=== PATIENT | male | born 2000 | race Caucasian/White ===

== ENCOUNTER 2025-07-04 06:22 | Inpatient (IN) ==
--- NOTE | 2025-06-28 13:41 | Anesthesiology Consultation ---
Date of Service June 28, 2025 Assessment & Plan (1) Encounter for pre-operative examination: - check CBC with diff, BMP and type and screen STAT am DOS. Fluid orders to assigned anesthesiologist review of BMP DOS. - Per cargo tank mechanic on 06/28/25: No known infectious disease contacts, current infectious disease symptoms in past 10 days or COVID positive test result in the past 30 days. Chart Review Chart Review: Acceptable Risk for Surgery and Patient NOT seen in Pre Admission Testing History Surgery Operation Date: 07/04/25 11:45 Proposed Procedures p L5-S1 Decompression and Fusion - Tarun Carr DO Height/Weight Height: 5 ft 10 in Weight: 106.594 kg Allergies Allergy/AdvReac Type Severity Reaction Status Date / Time No Known Allergies Allergy Verified 06/28/25 13:19 Medications Home Medications Medication Instructions Recorded Confirmed Last Taken No Known Home Medications 06/28/25 06/28/25 Unknown Past Medical History Medical History (Updated 06/28/25 @ 13:38 by Manjula Mcpherson PA-C) History of COVID-19 (2020) resolved Hx of cardiac murmur ~15 yrs ago, no issues since Low back pain Numbness left leg Past Family History Family History Other No family history of adverse response to anesthesia Past Surgical History Surgical History No history of previous surgery Social History Smoking Status: Never smoker Do You Dip or Chew Tobacco: No Hx Alcohol Use: Yes alcohol intake frequency: a few times a week Hx Substance Use: No substance use type: does not use
[2025-07-04] MEDS: GABAPENTIN 900 MG DOSE PO SCH (06:47)
[2025-07-04] MEDS: CeleBREX 200 MG CAP PO SCH (06:47)
[2025-07-04] MEDS: ACETAMINOPHEN 500 MG TAB PO SCH (06:47)
[2025-07-04] MEDS: LR 60ML/HR IV SCH (06:48)
[2025-07-04 06:50] LABS: Hematocrit (blood only) 48.1 % (42.0-52.0); Hemoglobin 15.8 g/dl (14.0-18.0); Immature Granulocytes # (auto) 0.09 K/uL (0.01-0.20); Immature Granulocytes % (auto) 0.8 %; Mean Corpuscular Hemoglobin 29.6 pg (25.0-34.0); Mean Corpuscular Volume 90.2 fL (80.0-100.0); Platelet Count 324 K/uL (130-400); RDW Standard Deviation 42.3 fL (36.4-46.3); Red Blood Count 5.33 M/uL (4.70-6.10); White Blood Count 11.42 K/ul (4.8-10.8)
[2025-07-04] MEDS ORDERED: MIDAZOLAM HCL 1 MG/ML 2ML VIAL ONE (07:02)
[2025-07-04] MEDS ORDERED: ROCURONIUM BROMIDE 10 MG/ML 5 ML VIAL IV ONE ×3 (07:02→08:33)
[2025-07-04] MEDS ORDERED: ONDANSETRON INJ 2 MG/ML 2 ML VIAL ONE (07:02)
[2025-07-04] MEDS ORDERED: DEXAMETHASONE SOD INJ 4 MG/ML VIAL ONE (07:02)
[2025-07-04] MEDS ORDERED: LIDOCAINE 2% 2 ML VIAL/AMP(20MG/ML) INFIL ONE (07:02)
[2025-07-04] MEDS ORDERED: PROPOFOL IV EMULSION 10 MG/ML 20 ML VIAL IV ONE (07:02)
[2025-07-04] MEDS ORDERED: DexMEDEtomidine HCL IV 100 MCG/ML VIAL IV ONE (07:07)
[2025-07-04] MEDS ORDERED: GLYCOPYRROLATE 0.2 MG/ML VIAL ONE (07:07)
[2025-07-04] MEDS ORDERED: ATROPINE SULFATE 0.1 MG/ML 10ML SYR IV PRN (07:20)
[2025-07-04] MEDS ORDERED: DROPERIDOL 5 MG/2 ML VIAL IV PRN (07:20)
[2025-07-04 07:25] LABS: Anion Gap 6.0 (3-11); Blood Urea Nitrogen 17.0 mg/dl (6-23); Calcium 9.7 mg/dl (8.6-10.3); Carbon Dioxide 29.0 mmol/L (21-32); Chloride 107.0 mmol/L (98-107); Creatinine Clr Calc Pharmacy 143.1 ml/min; Glucose 102.0 mg/dl (70-99(Fasting)); Potassium 4.0 mmol/L (3.5-5.1); Sodium 142.0 mmol/L (136-145)
--- NOTE | 2025-07-04 07:49 | History & Physical Bridge Note ---
Date of Service July 04, 2025 History & Physical Bridge Note I have examined the patient, reviewed the History & Physical and in the interval since the performance of the History & Physical I have noted the following changes of clinical significance: no changes noted
--- NOTE | 2025-07-04 07:49 | History & Physical Report ---
Date of Service July 04, 2025 Assessment & Plan (1) Lumbosacral spondylosis with radiculopathy: Plan: L5-S1 decompression and fusion History of Present Illness Chief Complaint: Back and leg pain Primary Care Provider: NO PCP This is a 25-year-old male presents with chronic persistent back and leg pain and failing course of nonoperative care is here for surgical invention. Allergies Allergy/AdvReac Type Severity Reaction Status Date / Time No Known Allergies Allergy Verified 07/04/25 06:23 Home Medications Medication Instructions Recorded Confirmed Type No Known Home Medications 06/28/25 06/28/25 History Past Med/Surg History Problem List (Updated 07/04/25 @ 07:49 by Tarun Carr DO) Lumbosacral spondylosis with radiculopathy Encounter for pre-operative examination Medical History History of COVID-19 (2020) resolved Hx of cardiac murmur ~15 yrs ago, no issues since Low back pain Numbness left leg Surgical History No history of previous surgery Family History Other No family history of adverse response to anesthesia Social History Smoking Status: Never smoker Second Hand Exposure: No; Do You Dip or Chew Tobacco: No; Tobacco Cessation Education Requested by Patient: No Hx Alcohol Use: Yes Hx Substance Use: No Preferred Language: [place] Communication Ability: Effective Supervisor Area Required: No Beliefs That Will Affect Care: None Current Living Situation: Family Other Information That Helps Us Care for You: No Feels Safe at Home: Yes Safety Concerns: Feels Safe At This Time Assistive Devices: Glasses Physical Exam Physical Exam: Patient is alert and oriented Heart regular rhythm Lungs clear Results & Data Results & Data Vital Signs (Past 12 Hours) Vital Signs Temp Pulse Resp BP Pulse Ox O2 Del Method 07/04/25 06:41 36.6 C 81 18 131/80 98 Room Air
[2025-07-04] MEDS ORDERED: HYDROmorphone INJ 2 MG/ML SYR/VIAL ONE (08:26)
[2025-07-04] MEDS ORDERED: LARYING-O-JET KIT (LTA) ONE (08:55)
[2025-07-04] MEDS: ceFAZolin 330 MG/ML 1 GM VIAL ONE ×2 (09:16→09:17)
[2025-07-04] MEDS: BUPIVACAINE/EPINEPHRINE 0.25% 1:200,000 30 ML VIAL ONE (09:16)
[2025-07-04] MEDS ORDERED: SUGAMMADEX SODIUM 200 MG/2 ML VIAL IV ONE (09:40)
--- NOTE | 2025-07-04 09:50 | Operative Report ---
Post Operative Report Pre & Post Diagnosis Operation Date: 07/04/25 07:45 Pre-Op Diagnosis: #1 lumbar disc herniation with radiculopathy #2 lumbosacral spondylosis with radiculopathy Post-Op Diagnosis: Same I identified the patient and participated in the time-out.: Yes Procedure Operation Date: 07/04/25 07:45 Actual Procedures #1 lumbar decompression with bilateral facetectomies and foraminotomies L5-S1. #2 posterior spinal fusion L5-S1. #3 placement of posterior instrumentation L5- S1 using Casillas. #4 interbody fusion L5-S1. #5 placement of Spira 13 x 26 mm x 2 at L5-S1. #6 placement locally harvested morselized autograft posterior gutters. #7 placement of Proteus combined with Koros in the posterior lateral gutters and os design interbody space. #8 application of versa over the exposed dura. Surgeon Tarun Carr, DO Entry Level Project Coordinator aMrissa Garza Estimated Blood Loss 100 Findings See Below The patient is 5 foot 10 weighing over 117 kg with a BMI in excess of 37. The patient's body habitus did contribute to significant technical difficulty with positioning exposure and the procedure itself and at least 50% increased operative time. Specimens None Indications This is a 25-year-old male who presents by much diagnosis after failing course of nonoperative care is here for surgical invention. Description of Procedure Patient was met with identified informed consent obtained. Patient was then taken to the operative suite underwent and patient placed in a prone position on the Gigi table on top of the Mark Anthony frame. All bony promises well-padded eyes inspected to ensure no external pressure placed upon the. This point the lumbar spine was prepped and draped in normal sterile fashion. Sharp dissection with the assistance of Bovie cautery performed down to and exposing the lamina transverse processes of L5 and the sacral ala bilaterally. From a caudal to cephalad fashion complete laminectomy of L5 was performed including bilateral medial facetectomies and foraminotomies addressing all neural encroachment as well as addressing the massive disc herniation on the left creating significant encroachment of the traversing S1 nerve root. After complete decompression pedicle screws were placed at L5-S1 bilaterally with the assistance of fluoroscopy and/grzegorz placed. By way of transforaminal approach on the left a discectomy was performed endplates coated to subcortical bleeding bone and a 13 x 26 mm Spira cage tapped into position. Then proceeded to the right transforaminal region. Again discectomy performed. Endplates guided to subcortically bone and a second 13 x 26 mm Spira cage tapped into position. Please note both cages were packed with os design bone graft. Rods were then compressed and locked in final position bilaterally. The transverse processes of L5 and sacral ala burred to subcortical bleeding bone. Koros combined with Proteus and local autograft placed in posterior gutters. First wrap placed over the exposed dura. 15 round SABAS drain inserted. The incision was then closed with 1 Vicryl fascia 2-0 Vicryl subcutaneously and 4 Monocryl for final skin closure. Steri-Strips and sterile dressing placed. Patient waken taken to PACU in stable condition. Please note Marissa Garza was present at the entire procedure about the patient positioning complex portion of the surgery and final skin closure. I attest to the content of the Intraoperative Record and any orders documented therein. Any exceptions are noted below.
[2025-07-04] MEDS: HYDROmorphone INJ 2 MG/ML SYR/VIAL IV PRN (10:25)
--- NOTE | 2025-07-04 11:02 | Fluoroscopy Report ---
FL lumbar spine 2-3V CLINICAL HISTORY: L5-S1 DECOMPRESSION AND FUSION COMPARISON STUDY: None FLUOROSCOPY TIME: 22 seconds FLUOROSCOPY IMAGES: 3 EXPOSURE DOSE: 22 mGy FINDINGS: Fluoroscopy was provided for L5-S1 laminectomy and fusion. IMPRESSION: Intraoperative fluoroscopy. ACT 112: Negative or not required by law. Electronically signed by: Stanley Posada M.D. 07/04/2025 11:01 AM
[2025-07-04] MEDS ORDERED: PROMETHAZINE 12.5 MG/50.5 ML BAG IV PRN (14:06)
[2025-07-04] MEDS ORDERED: ALUMINUM/MAGNESIUM SUSP 30 ML UDC PO PRN (14:06)
[2025-07-04] MEDS ORDERED: ACETAMINOPHEN 1,000 MG/100 ML VIAL IV PRN (14:06)
[2025-07-04] MEDS ORDERED: FAMOTIDINE 20 MG TAB PO PRN (14:06)
[2025-07-04] MEDS ORDERED: DO NOT ADMINISTER FLU VACCINE PRN (14:06)
[2025-07-04] MEDS ORDERED: METOCLOPRAMIDE HCL INJ 5 MG/ML 2 ML VIAL IV PRN (14:06)
[2025-07-04] MEDS ORDERED: ONDANSETRON INJ 2 MG/ML 2 ML VIAL IV PRN (14:06)
[2025-07-04] MEDS ORDERED: ONDANSETRON 4 MG OD TAB PO PRN (14:06)
[2025-07-04] MEDS ORDERED: MAGNESIUM HYDROXIDE SUSP 30 ML UDC PO PRN (14:06)
[2025-07-04] MEDS ORDERED: HYDROmorphone INJ 1 MG/ML SYRINGE IV PRN (14:06)
[2025-07-04] MEDS ORDERED: SOD PHOSPHATE/SOD BIPHOSPHATE ENEMA 132 ML BTL PR PRN (14:06)
[2025-07-04] MEDS ORDERED: DO NOT ADMINISTER PNEUMOCOCCAL VACCINE PRN (14:06)
[2025-07-04] MEDS ORDERED: diphenhydrAMINE Capsule 25 MG CAP PO PRN (14:06)
[2025-07-04] MEDS ORDERED: NALOXONE HCL 0.4 MG/1 ML VIAL/CARP IV PRN (14:06)
[2025-07-04] MEDS: KETOROLAC 30 MG/ML VIAL IV SCH (14:56)
[2025-07-04] MEDS: FLOSEAL HEMOSTATIC MATRIX 10ML TOP ONE (15:06)
--- NOTE | 2025-07-04 15:33 | Anesthesiology Progress Note ---
Date of Service July 04, 2025 Anesthesia Post Procedure Vital Signs Vital Signs: Temp Pulse Pulse Resp BP Pulse Ox O2 Del Method 07/04/25 14:59 36.4 C L 77 16 125/81 93 Room Air 07/04/25 14:30 36.9 C 63 18 133/82 93 Room Air 07/04/25 14:00 36.6 C 74 16 128/78 93 Room Air 07/04/25 13:30 76 12 131/79 96 Nasal Cannula 07/04/25 13:00 67 16 128/68 97 Nasal Cannula 07/04/25 12:30 70 12 127/70 95 Nasal Cannula 07/04/25 12:15 71 14 128/67 95 Nasal Cannula 07/04/25 12:00 67 12 137/50 L 94 Nasal Cannula 07/04/25 11:45 68 12 139/59 L 95 Nasal Cannula 07/04/25 11:30 73 12 128/69 94 Nasal Cannula 07/04/25 11:20 36.7 C 84 16 119/68 95 Nasal Cannula 07/04/25 11:10 70 12 124/64 95 Nasal Cannula 07/04/25 11:00 72 12 117/67 95 Nasal Cannula 07/04/25 10:50 78 12 123/71 95 Nasal Cannula 07/04/25 10:40 80 12 139/66 95 Oxymask 07/04/25 10:30 90 14 135/66 96 Oxymask 07/04/25 10:20 88 14 141/74 H 96 Oxymask 07/04/25 10:09 36.1 C L 80 12 142/87 H 95 Oxymask 07/04/25 06:41 36.6 C 81 18 131/80 98 Room Air O2 Flow Rate 07/04/25 14:59 07/04/25 14:30 07/04/25 14:00 07/04/25 13:30 2 07/04/25 13:00 3 07/04/25 12:30 3 07/04/25 12:15 3 07/04/25 12:00 3 07/04/25 11:45 3 07/04/25 11:30 3 07/04/25 11:20 3 07/04/25 11:10 3 07/04/25 11:00 4 07/04/25 10:50 4 07/04/25 10:40 6 07/04/25 10:30 6 07/04/25 10:20 6 07/04/25 10:09 8 07/04/25 06:41 Pain Intensity Back: Pain Intensity: 6 Transfer of Care Handoff Completed per policy Notes Mental Status: alert / awake / arousable Patient Amnestic to Procedure: Yes Nausea / Vomiting: adequately controlled Pain: adequately controlled Airway Patency, RR, SpO2: stable & adequate BP & HR: stable & adequate Hydration State: stable & adequate Anesthetic Complications: no major complications apparent and Pt Satisfied with anesthetic care
[2025-07-04] MEDS: HYDROmorphone INJ 0.5 MG/0.5 ML SYR IV PRN (16:09)
[2025-07-04] MEDS: DOCUSATE SODIUM/SENNA 50/8.6MG TAB PO SCH (20:56)
[2025-07-04] MEDS: LORazepam 0.5 MG TAB PO PRN (22:31)
[2025-07-05 05:49] LABS: Hematocrit (blood only) 41.2 % (42.0-52.0); Hemoglobin 13.7 g/dl (14.0-18.0); Immature Granulocytes # (auto) 0.11 K/uL (0.01-0.20); Immature Granulocytes % (auto) 0.6 %; Mean Corpuscular Hemoglobin 29.5 pg (25.0-34.0); Mean Corpuscular Volume 88.8 fL (80.0-100.0); Platelet Count 291 K/uL (130-400); RDW Standard Deviation 41.2 fL (36.4-46.3); Red Blood Count 4.64 M/uL (4.70-6.10); White Blood Count 18.77 K/ul (4.8-10.8)
[2025-07-05 06:05] LABS: Anion Gap 9.0 (3-11); Blood Urea Nitrogen 13.0 mg/dl (6-23); Calcium 9.4 mg/dl (8.6-10.3); Carbon Dioxide 26.0 mmol/L (21-32); Chloride 106.0 mmol/L (98-107); Creatinine Clr Calc Pharmacy 193.9 ml/min; Glucose 148.0 mg/dl (70-99(Fasting)); Potassium 4.1 mmol/L (3.5-5.1); Sodium 141.0 mmol/L (136-145)
[2025-07-05] MEDS: POLYETHYLENE (MIRALAX) 17 GM PACK PO SCH (06:24)
--- NOTE | 2025-07-05 08:19 | Orthopedic Progress Note ---
Date of Service July 05, 2025 Assessment & Plan (1) Lumbosacral spondylosis with radiculopathy: Plan: Jimmy is postoperative day 1 status post lumbar decompression and fusion L5-S1. He will start physical therapy today. Maintain SABAS drain. DVT prophylaxis is in the form teds and SCDs. Continue with pain control. Anticipate discharge home as early as tomorrow. Admission and Anticipated Discharge Date Admission Date: July 04, 2025 Subjective Jimmy is postoperative day 1 status post lumbar decompression and fusion of L5-S1. Left leg pain is resolved. Back pain is controlled. He is had an uneventful evening. SABAS drain output left shift is 50 cc. H&H this morning are 13.7 and 41.2 respectively. Review of Systems Review of Systems: All systems reviewed & are unremarkable except as noted in HPI & below Physical Exam Physical Exam: He is laying in bed sleeping but easily arousable Seen in conjunction with Dr. Carr alert and oriented x 3 strength intact bilateral lower extremities Lumbar dressing is clean dry and intact with functioning SABAS drain Results & Data Vital Signs (Past 12 Hours) Vital Signs Temp Pulse Pulse Resp BP BP Pulse Ox 07/05/25 07:09 36.5 C 77 16 118/62 96 07/05/25 03:31 36.4 C L 62 18 118/66 95 07/04/25 22:57 36.4 C L 81 18 123/68 94 O2 Del Method 07/05/25 07:09 Room Air 07/05/25 03:31 Room Air 07/04/25 22:57 Room Air
[2025-07-05] MEDS: dexAMETHasone 6 MG in SYRINGE 0 ML IV SCH (08:36)
[2025-07-05] MEDS: ACETAMINOPHEN 500 MG TAB PO PRN (12:32)
--- NOTE | 2025-07-06 09:45 | Discharge Summary ---
Date of Service July 06, 2025 Admission HPI Per Admitting Provider This is a 25-year-old male presents with chronic persistent back and leg pain and failing course of nonoperative care is here for surgical invention. Principal Diagnosis Lumbar spondylosis with radiculopathy Discharge Data Allergies Allergy/AdvReac Type Severity Reaction Status Date / Time No Known Allergies Allergy Verified 07/04/25 06:23 Procedures Performed Operation Date: 07/04/25 07:45 Actual Procedures p L5-S1 Decompression and Fusion(Not Applicable) - Tarun Carr DO Ordered Studies 07/04/25 07:45 [place] lumbar spine 2-3V Routine Hospital Course (1) Lumbosacral spondylosis with radiculopathy: Patient with lumbar depression fusion trial as well as taken orthopedic for postoperative but possibly progressed appropriate. SABAS drain decreasing. Extra strength testing. Pain well-controlled. Subsidy discharged home. Discharge orders instructions from the chart for further review. Total Time Total Time Spent Total Time Spent (In Minutes): 20 minutes Discharge Plan Discharge Items Patient Disposition: Home - Self-Care Reason For Visit: Lumbar Disc Herniation with Radiculopathy, Retroli Discharge Diagnosis: Lumbar spondylosis with herniated nucleus pulposus and radiculopathy Activity: As commented below Non-emergency contact: Primary Care Provider Call non-emergency contact if: you have any medication questions Follow-up/Referrals: PCP,JUAN [Primary Care Provider] - Diet: Regular Addtl Attending Provider Instructions: ACTIVITY RECOMMENDATIONS: SELF CARE INSTRUCTIONS AFTER THORACIC/LUMBAR FUSIONS 1. You may walk to your tolerance. It is good exercise for your legs and back. Expect some back and intermittent leg aches and pains. 2. You may perform "counter-top" level activities (make a sandwich, ramses with a project, etc.). 3. No bending or lifting of more than 10 pounds or back twisting of any nature (roll like a log when turning in bed). 4. You may ride in a car for 20-30 minutes at a time. No driving until after your first visit with your doctor. 5. Frequent changes of position and restricting sitting to 30 minutes at a time will help limit the amount of back spasms and stiffness you may experience. 6. You may discontinue the use of ambulatory aids (cane, crutches, etc.) once your strength and confidence allow. 7. You may twisting machine operator the shower and let water strike your incision when you arrive home at least once daily. Do not take a tub bath, sit in a hot tub or go into a swimming pool until after your first recheck in the office. 8. You may resume previous diet. SPECIAL CARE INSTRUCTIONS: VERY IMPORTANT TO READ AND REVIEW A. Your surgical incision has been closed with a cosmetic suture under the skin that will dissolve in about 6 weeks. In 14 days, you can use a pair of clean scissors and cut the suture that is left outside of the skin at the ends of your incision. 1. The small skin tapes can be removed 7 days after surgery if they have not fallen off by that point. 2. You may keep the wound open to air as much as possible to promote healing after post-op day number 5 unless told otherwise by your doctor. 3. If you think the wound looks like it is becoming infected (redness or worsening drainage) and/or you are experiencing fever, chill or worsening back pain and muscle spasms, contact the office so that we may evaluate you as soon as possible. B. Complications are uncommon, but please contact us if you have any signs or symptoms of: 1. wound infection (fever higher than 102.5 degrees F, redness, separation of wound, drainage, or increasing pain from the incision) 2. blood clots in legs (pain, swelling, redness and warmth in legs) 3. urinary tract infection (fever higher than 102.5 degrees F, burning upon urination or increased frequency of urination) 4. nerve problems (inability to walk on your toes or heels, numbness, loss of bowel or bladder control) 5. any other symptoms that concern you C. Please call the office at if you have any concerns or questions about your operation or recovery. D. No smoking! Smoking drastically decreases the chance of a solid fusion. E. Do not take any anti-inflammatory medications (Indocin, Advil, Motrin, Aspirin, Naprosyn, etc.) as these may inhibit the chance of a solid fusion. Tylenol is okay to take for pain. MANAGING PAIN AFTER SPINAL SURGERY 1. Narcotic medication is intended for short-term use and will be provided for surgical pain. Surgical pain usually lasts for a period of 4-6 weeks. Narcotic medication includes Percocet, Vicodin, Darvocet, Tylenol #3 or Lortab. 2. Longer-term pain is more appropriately treated with non-narcotic medication such as Tylenol ES. 3. Muscle spasm is not appropriately treated with narcotics. Muscle relaxers such as Soma, Flexeril or Skelaxin can be used along with Tylenol ES. 4. Remember that we all live with some "aches and pains". This is not unusual or uncommon after an injury or as we get older. a. Back pain is expected and may include muscle spasms for 4 to 6 weeks after surgery. The pain should gradually improve. If the pain worsens for no apparent reason, please contact the office. b. Intermittent leg pain may also be experienced and should not be concerned about unless it worsens for no apparent reason. If so, please contact the office. 5. We will provide appropriate medication within the normal guidelines of their prescribed use. We will also be very cautious and aware of potential abuse and extended duration of patients' medication needs. a. Pain medications are for your comfort and to assist with sleep and rest so that the tissue can heal. They are not provided in order to return to normal activity and should not be used through the day. To do so or worsening pain at night can result from ongoing tissue damage and development of tolerance to the prescribed medicine. 6. Please allow 2-3 days to process refills. Prescriptions will not be mailed but must be picked up at the office. FOLLOW UP VISIT: Keep your scheduled follow-up appointment. Any questions, please call the office at . Pending Studies at Discharge: No Stand-Alone Forms: My [facility], Smoking Cessation Medications and DC Order Prescriptions: New tramadol 50 mg tablet 50 mg PO Q6H PRN (Reason: pain, moderate) Qty: 30 0RF oxycodone 5 mg tablet 5 mg PO Q6H PRN (Reason: pain) Qty: 30 0RF Discharge Orders: Discharge Order (Routine); Ordered 07/06/25 Ordered By: Tarun Carr Admission Data Admit Date/Time: 07/04/25 09:54 Attending Provider: Tarun Carr Admit Provider: Tarun Carr Primary Care Provider: PCP,JUAN
== END 2025-07-06 11:47 | disposition home or self-care (01) | DRG 402 ==
LOC: ASU 06:22 → PACUINP 09:54 → 3E 14:03